=== PATIENT | male | born 1975 | race Two or more races ===

== ENCOUNTER → 2023-10-24 | Outpatient (CLI) | payer BC ==
[~2023-10-24] VITALS: Ht 165.1 cm; Wt 99.8 kg
[2023-10-24] MEDS: ADENOSINE 84 MG in GIVE UN-DILUTED 0 ML IV ONE (10:27)
== END | disposition home or self-care (01) ==
LOC: XYW 10-03 08:07
PROVIDERS: ATTEND Specialist
DX: I10 Essential (primary) hypertension (principal); E66.8 Other obesity; R06.00 Dyspnea, unspecified; R07.9 Chest pain, unspecified
CPT/HCPCS: 78452; 93017; A9500; J0153